=== PATIENT | female | born 1995 | race Caucasian/White ===

== ENCOUNTER 2017-02-01 08:06 | Emergency (ER) ==
[2017-02-01 08:12] VITALS: BP 107/72; TEMP 98.8; BMI 34.9
--- NOTE | 2017-02-01 08:21 | ED.PDOC ---
General ED Provider: Dr. IGGY ANGELES Chief Complaint: Foreign Body in Ear Stated Complaint: Ear regularly drains; put in a cotton ball last night. Pulled out this AM - still some cotton in ear. Time Seen by Physician: 08:15 Mode of Arrival: Walk-In Information Source: Patient Exam Limitations: No limitations Primary Care Provider: MARCO A COBURN Nursing and Triage Documentation Reviewed and Agree: Yes Review of Systems - Review Of Systems Constitutional: Reports: No symptoms Ears, Nose, Mouth, Throat: Reports: Ear pain (Foreign body sensation R ear) Respiratory: Reports: No symptoms Cardiac: Reports: No symptoms All Other Systems: Reviewed and Negative Past Medical History - Past Medical History Previously Healthy: Yes Endocrine: Reports: None Cardiovascular: Reports: None Respiratory: Reports: None Hematological: Reports: None Gastrointestinal: Reports: None Genitourinary: Reports: None Neuro/Psych: Reports: None Musculoskeletal: Reports: Joint Pain Cancer: Reports: None Last Menstrual Period: 1 month ago - Surgical History General Surgical History: Reports: None - Family History Family History: Reports: None - Social History Smoking Status: Never smoker Hx Substance Use: No Alcohol Screening: None Physical Exam - Physical Exam Appearance: Well-appearing ENT: Ears normal (L ear clear; R ear with cotton ball portion/debris present inferior portion of auditory canal; TM visualized and intact) Neck: Supple Respiratory: Airway patent Skin: Warm, Dry, Normal color Neurological: Sensation intact, Motor intact, Alert, Oriented Psychiatric: Affect appropriate, Mood appropriate Procedures - Foreign Body Removal Location of Foreign Object: R auditory canal Foreign Object: Cotton ball reminant Depth of Object: 8 mm Type of Anesthesia: None Irrigation: Yes (warm NS) Skin Incised: No Instruments Used: Yes: Manual, Forceps Foreign Body Identified and Removed: Yes (Cotton ball remanant) Critical Care Note - Critical Care Note Total Time (mins): 10 Course - Course Vital Signs: Temp Pulse Resp BP Pulse Ox 02/01/17 08:06 98.8 F 76 20 107/72 98 Departure - Departure Time of Disposition: 08:39 Disposition: HOME SELF-CARE Discharge Problem: Acute foreign body of ear canal Instructions: Ear Foreign Body (ED) Condition: Good Pt referred to PMD for follow-up: Yes Additional Instructions: Use ear drops as prescribed for 5 days. Follow up with Dr. Coburn as needed; call for appointment as needed. Prescriptions: Neomycin/Polymyxin B/Hc Otic [Cortisporin Otic Susp] 4 drop OT Q8H #1 drops.susp Allergies/Adverse Reactions: Allergies No Known Allergies Allergy (Verified 02/01/17 08:13) Home Medications: Ambulatory Orders Neomycin/Polymyxin B/Hc Otic [Cortisporin Otic Susp] 4 drop OT Q8H #1 drops.susp 02/01/17 Disposition Discussed With: Patient
== END 2017-02-01 08:52 | disposition home or self-care (01) ==
LOC: ED 08:06
DX: T16.1XXA Foreign body in right ear, initial encounter (principal)
CPT/HCPCS: 99282

== ENCOUNTER 2017-08-18 03:23 | Emergency (ER) ==
[2017-08-18 03:34] VITALS: BP 111/78; TEMP 98.4; BMI 35.2
--- NOTE | 2017-08-18 04:03 | ED.PDOC ---
General ED Provider: Dr. ALLY JOHNSON Chief Complaint: Earache Stated Complaint: patient placed a cotton bud in ear then slept. Thinks it is stuck in the ear. Complains of mild discomfort. Time Seen by Physician: 03:40 Mode of Arrival: Walk-In Information Source: Patient Exam Limitations: No limitations Primary Care Provider: MARCO A COBURN Nursing and Triage Documentation Reviewed and Agree: Yes EENT Complaint Exam - Ear Complaint/Exam Onset/Duration: 2 hours Symptoms Are: Still present Timing: Constant Initial Severity: Mild Current Severity: Mild Character: Reports: Unable to describe Aggravating: Reports: Foreign body Alleviating: Reports: None Associated Signs and Symptoms: Denies: Ear trauma, Ear swelling, Discharge, Fever, Hearing loss, Bleeding, Sore throat, Headache, URI symptoms, Foreign body sensation, Rash, Pain to external ear, Pain to external face Ear Surgical History: None Vesicles to External Pinna: No Vesicles to Tragus: No TMJ Tenderness: None Mastoid Tenderness: None Tragal Tenderness: None External Canal: Normal Material in Canal: Present: Foreign body (on the right ) Tympanic Membrane: Erythema (slight irriation on the right ear drum ) Differential Diagnoses: Foreign Body Review of Systems - Review Of Systems Constitutional: Reports: No symptoms Ears, Nose, Mouth, Throat: Reports: Ear pain (mild with feeling of roreign body ) All Other Systems: Reviewed and Negative Past Medical History - Past Medical History Previously Healthy: Yes Endocrine: Reports: None Cardiovascular: Reports: None Respiratory: Reports: None Hematological: Reports: None Gastrointestinal: Reports: None Genitourinary: Reports: None Neuro/Psych: Reports: None Musculoskeletal: Reports: Joint Pain Cancer: Reports: None Last Menstrual Period: 07/31/17 - Surgical History General Surgical History: Reports: None - Family History Family History: Reports: None - Social History Smoking Status: Never smoker Hx Substance Use: No Alcohol Screening: Occasionally - Immunizations Tetanus Shot up to Date: Yes Physical Exam - Physical Exam Appearance: Well-appearing Psychiatric: Anxious Procedures - Foreign Body Removal Location of Foreign Object: right ear Foreign Object: cotton bud Depth of Object: deep close to the ear drum Type of Anesthesia: None Irrigation: Yes (on the left ear ) Instruments Used: Yes: Forceps Foreign Body Identified and Removed: Yes (cotton wool ) Critical Care Note - Critical Care Note Total Time (mins): 0 Course - Course Vital Signs: Temp Pulse Resp BP Pulse Ox 08/18/17 03:25 98.4 F 99 H 20 111/78 98 Departure - Departure Time of Disposition: 04:04 Disposition: HOME SELF-CARE Discharge Problem: Foreign body of ear, right Qualifiers: Encounter type: initial encounter Qualified Code(s): T16.1XXA - Foreign body in right ear, initial encounter Instructions: Ear Foreign Body (ED) Condition: Stable Pt referred to PMD for follow-up: Yes Additional Instructions: don't put any foreign body in ear Follow up with PCP as needed. Allergies/Adverse Reactions: Allergies No Known Allergies Allergy (Verified 08/18/17 03:34) Home Medications: Ambulatory Orders Escitalopram Oxalate [Lexapro] 10 mg PO DAILY 08/18/17 Disposition Discussed With: Patient
== END 2017-08-18 04:07 | disposition home or self-care (01) ==
LOC: ED 03:23
DX: T16.1XXA Foreign body in right ear, initial encounter (principal)
CPT/HCPCS: 99282

== ENCOUNTER 2017-08-23 19:29 | Emergency (ER) ==
[2017-08-23 19:29] VITALS: BMI 35.2
[2017-08-23 19:32] VITALS: BP 135/84; TEMP 98.6
--- NOTE | 2017-08-23 20:21 | ED.PDOC ---
General ED Provider: Dr. ALLY JOHNSON Chief Complaint: Earache Stated Complaint: Patient complains of 3 day history of left earache that is swollen and tender, Was seen 4 days ago for right ear foreign body removal. Time Seen by Physician: 19:50 Mode of Arrival: Walk-In Information Source: Patient Primary Care Provider: MARCO A COBURN Nursing and Triage Documentation Reviewed and Agree: Yes EENT Complaint Exam - Ear Complaint/Exam Onset/Duration: 3 days Symptoms Are: Still present Timing: Constant Initial Severity: Moderate Current Severity: Severe Character: Reports: Aching pain, Throbbing pain Aggravating: Reports: Tugging on ear Associated Signs and Symptoms: Reports: Discharge, Pain to external ear. Denies : Ear trauma, Ear swelling, Fever, Hearing loss, Bleeding, Sore throat, Headache , URI symptoms, Foreign body sensation, Rash, Pain to external face Related History: Denies: Similar Episode, Seasonal allergies, Meds used, Drops used Ear Surgical History: None Vesicles to External Pinna: No Vesicles to Tragus: No TMJ Tenderness: Left Mastoid Tenderness: None Tragal Tenderness: Left External Canal: Erythema, Tenderness, Swelling Material in Canal: Present: Discharge. Absent: Cerumen, Cerumen impaction, Blood, Foreign body Tympanic Membrane: Dullness Differential Diagnoses: Otitis Externa, Otitis Media Review of Systems - Review Of Systems Constitutional: Reports: No symptoms Eyes: Reports: No symptoms Ears, Nose, Mouth, Throat: Reports: Ear pain Respiratory: Reports: No symptoms Cardiac: Reports: No symptoms GI: Reports: No symptoms : Reports: No symptoms Musculoskeletal: Reports: No symptoms Skin: Reports: No symptoms Neurological: Reports: No symptoms Endocrine: Reports: No symptoms Hematologic/Lymphatic: Reports: No symptoms All Other Systems: Reviewed and Negative Past Medical History - Past Medical History Previously Healthy: Yes Endocrine: Reports: None Cardiovascular: Reports: None Respiratory: Reports: None Hematological: Reports: None Gastrointestinal: Reports: None Genitourinary: Reports: None Neuro/Psych: Reports: None Musculoskeletal: Reports: Joint Pain Cancer: Reports: None Last Menstrual Period: jul 31 - Surgical History General Surgical History: Reports: None - Family History Family History: Reports: None - Social History Smoking Status: Never smoker Hx Substance Use: No Alcohol Screening: Occasionally Physical Exam - Physical Exam Appearance: Ill-appearing, Obese Ill-appearing: Mild Pain Distress: Severe Eyes: ANNE, EOMI, Conjunctiva clear ENT: Exudate Neck: Supple Respiratory: Airway patent, Breath sounds clear, Breath sounds equal, Respirations nonlabored Cardiovascular: RRR, Pulses normal, No rub, No murmur Skin: Warm, Dry, Normal color Psychiatric: Anxious Critical Care Note - Critical Care Note Total Time (mins): 0 Course - Course Vital Signs: Temp Pulse Resp BP Pulse Ox 08/23/17 19:29 98.6 F 106 H 20 135/84 97 Departure - Departure Time of Disposition: 20:19 Disposition: HOME SELF-CARE Discharge Problem: Otitis media Qualifiers: Otitis media type: suppurative Chronicity: acute Laterality: left Recurrence: not specified as recurrent Spontaneous tympanic membrane rupture: without spontaneous rupture Qualified Code(s): H66.002 - Acute suppurative otitis media without spontaneous rupture of ear drum, left ear Otitis externa Qualifiers: Otitis externa type: unspecified type Chronicity: acute Laterality: left Qualified Code(s): H60.502 - Unspecified acute noninfective otitis externa, left ear Instructions: Otitis Externa (ED), Otitis Media (ED) Condition: Fair Pt referred to PMD for follow-up: Yes Additional Instructions: Take medications as prescribed Follow up with PCP in 3-5 days Prescriptions: Amoxicillin [Amoxil] 500 mg PO TID #30 capsule Ibuprofen [Motrin] 600 mg PO Q6H PRN #20 tablet PRN Reason: Analgesia Neomycin/Polymyxin B/Hc Otic [Cortisporin Otic Susp] 4 drop OT Q8H #10 drops.susp Tramadol HCl [Ultram] 50 mg PO Q6H PRN #10 tablet PRN Reason: Severe Pain Allergies/Adverse Reactions: Allergies No Known Allergies Allergy (Verified 08/23/17 19:32) Home Medications: Ambulatory Orders Escitalopram Oxalate [Lexapro] 10 mg PO DAILY 08/18/17 Amoxicillin [Amoxil] 500 mg PO TID #30 capsule 08/23/17 Ibuprofen [Motrin] 600 mg PO Q6H PRN #20 tablet 08/23/17 Neomycin/Polymyxin B/Hc Otic [Cortisporin Otic Susp] 4 drop OT Q8H #10 drops.susp 08/23/17 Tramadol HCl [Ultram] 50 mg PO Q6H PRN #10 tablet 08/23/17 Disposition Discussed With: Patient
== END 2017-08-23 20:27 | disposition home or self-care (01) ==
LOC: ED 19:29
DX: H66.002 Acute suppurative otitis media without spontaneous rupture of ear drum, left ear (principal); H60.502 Unspecified acute noninfective otitis externa, left ear
CPT/HCPCS: 99282

== ENCOUNTER 2017-09-19 07:17 | Outpatient (CLI) ==
--- NOTE | 2017-09-19 09:00 | US ---
EXAM: Right upper quadrant abdominal ultrasound. History: Nausea and vomiting. Technique: Multiple sonographic images through the abdomen were obtained. Color duplex Doppler was used to interrogate vascular flow. Findings: The liver is mildly enlarged. There is antegrade flow within the main portal vein. No fo neeta liver lesions identified sonographically. Pancreas was not visualized due to obscuration by oscar l gas. Limited visualization of the right kidney demonstrates no evidence for hydronephrosis. There is antegrade flow within the main portal vein. Common bile duct measures 0.6 cm in caliber. Multiple gallstones. Gallbladder wall is borderline thickened. Impression: Cholelithiasis and borderline thickened gallbladder wall.
== END 2017-09-19 07:18 | disposition home or self-care (01) ==
LOC: RAD 07:17
PROVIDERS: ATTEND Family Medicine
DX: R11.0 Nausea (principal)

== ENCOUNTER 2017-09-24 18:32 | Emergency (ER) ==
[2017-09-24] MEDS ORDERED: DECADRON 4 MG/ML SDV IM STA (18:36)
[2017-09-24 18:38] VITALS: BP 136/72; TEMP 98.7; BMI 35.6
--- NOTE | 2017-09-24 18:39 | ED.PDOC ---
General ED Provider: Dr. MARCO A COBURN-ER Chief Complaint: Rash Stated Complaint: sotero got poison [place] Time Seen by Physician: 18:37 Mode of Arrival: Walk-In Information Source: Patient Exam Limitations: No limitations Primary Care Provider: MARCO A COBURN Nursing and Triage Documentation Reviewed and Agree: Yes Skin Complaint Exam - Skin Rash/Itching Complaint/Exam Onset/Duration: 24hrs Symptoms Are: Still present Initial Severity: Mild Current Severity: Mild Location: chest and trunk Potential Exposures: Reports: Plants Aggravating: Reports: None Alleviating: Reports: None Associated Signs and Symptoms: Denies: Difficulty breathing, Fever, Chills Skin Findings: Present: Lesions, Weeping skin Differential Diagnoses: Contact Dermatitis Review of Systems - Review Of Systems Constitutional: Reports: No symptoms Eyes: Reports: No symptoms Ears, Nose, Mouth, Throat: Reports: No symptoms Respiratory: Reports: No symptoms Cardiac: Reports: No symptoms GI: Reports: No symptoms : Reports: No symptoms Musculoskeletal: Reports: No symptoms Skin: Reports: Rash Neurological: Reports: No symptoms Endocrine: Reports: No symptoms Hematologic/Lymphatic: Reports: No symptoms All Other Systems: Reviewed and Negative Past Medical History - Past Medical History Previously Healthy: Yes Endocrine: Reports: None Cardiovascular: Reports: None Respiratory: Reports: None Hematological: Reports: None Gastrointestinal: Reports: None Genitourinary: Reports: None Neuro/Psych: Reports: None Musculoskeletal: Reports: Joint Pain Cancer: Reports: None - Surgical History General Surgical History: Reports: None - Family History Family History: Reports: None - Social History Smoking Status: Never smoker Hx Substance Use: No Alcohol Screening: Occasionally Physical Exam - Physical Exam Appearance: Well-appearing, No pain distress, Well-nourished Eyes: ANNE, EOMI, Conjunctiva clear ENT: Ears normal, Nose normal, Oropharynx normal Neck: Supple Respiratory: Airway patent, Breath sounds clear, Breath sounds equal, Respirations nonlabored Cardiovascular: RRR, Pulses normal, No rub, No murmur GI/: Soft, Nontender, No masses, Bowel sounds normal, No Organomegaly Musculoskeletal: Normal strength, ROM intact, No edema, No calf tenderness Skin: Warm, Dry, Normal color Neurological: Sensation intact Psychiatric: Affect appropriate, Mood appropriate Critical Care Note - Critical Care Note Total Time (mins): 0 Course - Course Orders, Labs, Meds: Orders Category Date Time Status Dexamethasone 4 mg/ml Inj [Decadron 4 mg/ml Sdv] MEDS 09/24/17 18:36 Stat 8 mg IM ONCE STA Departure - Departure Time of Disposition: 18:38 Disposition: HOME SELF-CARE Discharge Problem: Pruritic rash Instructions: Contact Dermatitis (ED), Poison [place] (ED) Condition: Good Pt referred to PMD for follow-up: Yes Additional Instructions: prednisone 30mg x3 days then 20mg x 2 days then 10mg x 2 days(start tomorrow) Allergies/Adverse Reactions: Allergies No Known Allergies Allergy (Verified 08/23/17 19:32) Home Medications: Ambulatory Orders Escitalopram Oxalate [Lexapro] 10 mg PO DAILY 08/18/17 Amoxicillin [Amoxil] 500 mg PO TID #30 capsule 08/23/17 Ibuprofen [Motrin] 600 mg PO Q6H PRN #20 tablet 08/23/17 Neomycin/Polymyxin B/Hc Otic [Cortisporin Otic Susp] 4 drop OT Q8H #10 drops.susp 08/23/17 Tramadol HCl [Ultram] 50 mg PO Q6H PRN #10 tablet 08/23/17 Disposition Discussed With: Patient, Family
== END 2017-09-24 19:08 | disposition home or self-care (01) ==
LOC: ED 18:32
DX: R21 Rash and other nonspecific skin eruption (principal); L29.9 Pruritus, unspecified
CPT/HCPCS: 96372; 99283

== ENCOUNTER 2017-12-01 22:27 | Emergency (ER) ==
[2017-12-01 22:36] VITALS: BP 125/78; TEMP 98.4; BMI 35.2
--- NOTE | 2017-12-01 23:05 | ED.PDOC ---
General ED Provider: Dr. MARCO A COBURN-ER Chief Complaint: Ankle Pain/Injury Stated Complaint: i hurt my ankle Time Seen by Physician: 22:35 Mode of Arrival: Walk-In Information Source: Patient Exam Limitations: No limitations Primary Care Provider: MARCO A COBURN Nursing and Triage Documentation Reviewed and Agree: Yes Reviewed sepsis parameters & appropriate labs ordered?: Yes System Inflammatory Response Syndrome: Not Applicable Sepsis Protocol: For patient's 13 years and over: Temp is 96.8 and below OR 101 and greater Pulse >90 BPM Resp >20/minute Acutely Altered Mental Status Are patient's symptoms suggestive of a new infection, such as: -Pneumonia -Skin, Soft Tissue -Endocarditis -UTI -Bone, Joint Infection -Implantable Device -Acute Abdominal Infection -Wound Infection -Meningitis -Blood Stream Catheter Infection -Unknown Musculoskeletal Complaint Exam - Ankle/Foot Complaint/Exam Location of Injury: Reports: Right, Ankle Mechanism of Injury: Reports: Trauma Onset/Duration: 2 hours Symptoms Are: Reports: Still present Onset of Pain: Reports: Immediate Initial Severity: Mild Current Severity: Mild Location: Reports: Discrete (right ankle) Character: Reports: Dull, Aching Aggravating: Reports: Movement, Weight bearing, Prolonged standing Able to Bear Weight: Yes Associated Signs and Symptoms: Reports: Swelling, Bruising Gout Risk Factors: Reports: None Related Surgical History: Reports: None Lower Extremity Findings: Present: Swelling, Ecchymosis, Tenderness, Limited range of motion Achilles Tendon Abnormality: No Tenderness: Present: Medial malleolus, Lateral malleolus Limited Range of Motion: Present: Inversion, Eversion Review of Systems - Review Of Systems Constitutional: Reports: No symptoms Eyes: Reports: No symptoms Ears, Nose, Mouth, Throat: Reports: No symptoms Respiratory: Reports: No symptoms Cardiac: Reports: No symptoms GI: Reports: No symptoms : Reports: No symptoms Musculoskeletal: Reports: Joint pain, Joint swelling, Muscle pain Skin: Reports: No symptoms Neurological: Reports: No symptoms Endocrine: Reports: No symptoms Hematologic/Lymphatic: Reports: No symptoms All Other Systems: Reviewed and Negative Past Medical History - Past Medical History Previously Healthy: Yes Endocrine: Reports: None Cardiovascular: Reports: None Respiratory: Reports: None Hematological: Reports: None Gastrointestinal: Reports: None Genitourinary: Reports: None Neuro/Psych: Reports: None Musculoskeletal: Reports: Joint Pain Cancer: Reports: None Last Menstrual Period: 11/05/17 - Surgical History General Surgical History: Reports: None - Family History Family History: Reports: None - Social History Smoking Status: Never smoker Hx Substance Use: No Alcohol Screening: None Lives: With family - Immunizations Tetanus Shot up to Date: Yes Physical Exam - Physical Exam Appearance: Well-appearing, No pain distress, Well-nourished Pain Distress: Mild Eyes: ANNE, EOMI, Conjunctiva clear ENT: Ears normal, Nose normal, Oropharynx normal Neck: Supple Respiratory: Airway patent, Breath sounds clear, Breath sounds equal, Respirations nonlabored Cardiovascular: RRR, Pulses normal, No rub, No murmur GI/: Soft, Nontender, No masses, Bowel sounds normal, No Organomegaly Musculoskeletal: Limited ROM Skin: Warm Neurological: Sensation intact, Motor intact, Reflexes intact, Cranial nerves intact, Alert, Oriented Psychiatric: Affect appropriate, Mood appropriate Interpretation - Radiology Interpretation Radiology Interpretation By: ED Physician Radiology Results: Negative Critical Care Note - Critical Care Note Total Time (mins): 0 Course - Course Orders, Labs, Meds: Orders Category Date Time Status TATYANA [ED TATYANA WRAP] .ONCE EMERGENCY 12/01/17 23:09 Ordered Air cast [ED SPLINT APPLICATION] .ONCE EMERGENCY 12/01/17 23:09 Ordered ANKLE, RIGHT MIN 3 VIEWS Stat RADS 12/01/17 22:48 Taken Vital Signs: Temp Pulse Resp BP Pulse Ox 12/01/17 22:30 98.4 F 80 18 125/78 98 Departure - Departure Time of Disposition: 23:07 Disposition: HOME SELF-CARE Discharge Problem: Ankle pain Instructions: Ankle Sprain (ED), Ankle Stirrup Splint (ED) Condition: Good Pt referred to PMD for follow-up: Yes ( ) Additional Instructions: --use your crutches at home use motrin or tylenol for pain--f/u with me in one week Allergies/Adverse Reactions: Allergies No Known Allergies Allergy (Verified 12/01/17 22:35) Home Medications: Ambulatory Orders Escitalopram Oxalate [Lexapro] 10 mg PO DAILY 08/18/17 Disposition Discussed With: Patient, Family
--- NOTE | 2017-12-01 23:19 | DI ---
EXAM: Right ankle, three views, 12/01/2017 HISTORY: Ankle injury COMPARISON: 02/16/2016 FINDINGS / IMPRESSION: Severe lateral soft tissue swelling The underlying osseous structures appear intact. There is no evidence of fracture or dislocation. No acute post traumatic osseous abnormality.
== END 2017-12-01 23:24 | disposition home or self-care (01) ==
LOC: ED 22:27
DX: S93.401A Sprain of unspecified ligament of right ankle, initial encounter (principal); W19.XXXA Unspecified fall, initial encounter
CPT/HCPCS: 99282

== ENCOUNTER 2019-02-16 14:54 | Emergency (ER) ==
[2019-02-16 15:08] VITALS: BP 138/91; TEMP 99.2; BMI 34.8
--- NOTE | 2019-02-16 15:36 | ED.PDOC ---
General ED Provider: Dr. ALLY JOHNSON Chief Complaint: Sore Throat Stated Complaint: Woke up with sore throat last night. She took Tylenol this AM Time Seen by Physician: 15:35 Mode of Arrival: Walk-In Information Source: Patient Primary Care Provider: MARCO A COBURN Nursing and Triage Documentation Reviewed and Agree: Yes Does patient meet sepsis criteria?: No System Inflammatory Response Syndrome: Not Applicable Sepsis Protocol: For patient's 13 years and over: Temp is 96.8 and below OR 101 and greater Pulse >90 BPM Resp >20/minute Acutely Altered Mental Status Are patient's symptoms suggestive of a new infection, such as: -Pneumonia -Skin, Soft Tissue -Endocarditis -UTI -Bone, Joint Infection -Implantable Device -Acute Abdominal Infection -Wound Infection -Meningitis -Blood Stream Catheter Infection -Unknown EENT Complaint Exam - Throat Complaint/Exam Onset/Duration: last night Symptoms Are: Still present Timimg: Constant Initial Severity: Severe Current Severity: Moderate Alleviating: Reports: None Associated Signs and Symptoms: Reports: Dysphagia Related History: Reports: Similar Episode Uvula Midline: Yes Astrid-tonsillar Fluctuence: No Scarlatinaform Rash Present: No Stridor Present: No Sinus Tenderness Present: No Tonsillar Hypertrophy Present: Yes (on the right ) Tonsillar Exudate Present: No Astrid-tonsillar Swelling Present: No Adenopathy Present: Yes Splenomegaly Present: No Differential Diagnoses: Pharyngitis, Tonsillitis Review of Systems - Review Of Systems Constitutional: Reports: No symptoms Eyes: Reports: No symptoms Ears, Nose, Mouth, Throat: Reports: Nose pain (with dysphagia ), Throat pain Respiratory: Reports: No symptoms Cardiac: Reports: No symptoms GI: Reports: No symptoms : Reports: No symptoms Musculoskeletal: Reports: No symptoms Skin: Reports: No symptoms Neurological: Reports: No symptoms Endocrine: Reports: No symptoms Hematologic/Lymphatic: Reports: No symptoms All Other Systems: Reviewed and Negative Past Medical History - Past Medical History Previously Healthy: Yes Endocrine: Reports: None Cardiovascular: Reports: None Respiratory: Reports: None Hematological: Reports: None Gastrointestinal: Reports: None Genitourinary: Reports: None Neuro/Psych: Reports: Migraine, Anxiety Musculoskeletal: Reports: Joint Pain Cancer: Reports: None Last Menstrual Period: 2 weeks - Surgical History General Surgical History: Reports: Tonsillectomy, Adenoidectomy, Other (PE Tubes ) - Family History Family History: Reports: None - Social History Smoking Status: Never smoker Hx Substance Use: No Alcohol Screening: None Physical Exam - Physical Exam Appearance: Ill-appearing, Obese Ill-appearing: Mild Pain Distress: Severe Eyes: ANNE, EOMI, Conjunctiva clear ENT: Erythema Neck: Supple Respiratory: Airway patent, Breath sounds clear, Breath sounds equal, Respirations nonlabored Cardiovascular: RRR, Pulses normal, No rub, No murmur GI/: Soft, Nontender, No masses, Bowel sounds normal, No Organomegaly Skin: Warm Neurological: Alert, Oriented Psychiatric: Anxious, Depressed Critical Care Note - Critical Care Note Total Time (mins): 0 Course - Course Orders, Labs, Meds: Orders Category Date Time Status FLU A & B MOLECULAR [FLU A/B MOLECULAR] Stat LAB 02/16/19 15:17 Ordered RAPID STREP SCREEN [MOLECULAR GROUP A STREP] Stat LAB 02/16/19 15:17 Completed Vital Signs: Temp Pulse Resp BP Pulse Ox 02/16/19 15:04 99.2 F 100 H 20 138/91 H 98 Departure - Departure Time of Disposition: 15:55 Disposition: HOME SELF-CARE Discharge Problem: Streptococcal sore throat Instructions: Strep Throat (ED) Condition: Stable Pt referred to PMD for follow-up: Yes IPMP verified?: No Additional Instructions: Take Medications as prescribed including antibiotics until gone push fluids Follow up with your PCP in 3 days Prescriptions: Amoxicillin [Amoxil] 500 mg PO TID #30 capsule Ibuprofen [Motrin] 600 mg PO Q6H PRN #30 tablet PRN Reason: Analgesia Allergies/Adverse Reactions: Allergies No Known Allergies Allergy (Verified 02/16/19 15:08) Home Medications: Ambulatory Orders Amoxicillin [Amoxil] 500 mg PO TID #30 capsule 02/16/19 Ibuprofen [Motrin] 600 mg PO Q6H PRN #30 tablet 02/16/19 Sumatriptan Succinate [Imitrex] 50 mg PO DIRECTED 02/16/19 Disposition Discussed With: Patient, Family
[2019-02-16] MEDS ORDERED: MOTRIN PO STA (15:55)
== END 2019-02-16 16:10 | disposition home or self-care (01) ==
LOC: ED 14:54
DX: J02.0 Streptococcal pharyngitis (principal)
CPT/HCPCS: 87502; 87651; 99283